=== PATIENT | female | born 1975 | race Caucasian/White ===

== ENCOUNTER 2019-04-07 21:56 | Inpatient (IN) | payer OTHER ==
[~2019-04-07] VITALS: Ht 157.5 cm; Wt 117.9 kg
--- NOTE | 2019-04-07 22:27 | NUR ---
PACIENTE ALERTA,ACTIVA Y ORIENTADA.REFIERE DESDE MEDIO LILY DOLOR ABDOMINAL, DIARREAS X 10 Y VOMITOPS X 10.
[2019-04-07] MEDS ORDERED: ZESTRIL20 MG (22:29)
--- NOTE | 2019-04-08 00:44 | NUR ---
BP-196/91. SE NOTIFICA A
--- NOTE | 2019-04-08 00:52 | NUR ---
MS ELDRIDGE ORIENTA PTE SOBRE TX MEDICO EL CUAL REFIERE ENTENDER.SE LE EXTRAEN MUESTRAS BAJO MEDIDAS ASEPTICAS,SE CANALIZA Y SE ADMINISTRA MEDICAMENTO SARAH ORDEN MEDICA.
--- NOTE | 2019-04-08 07:25 | NUR ---
PACIENTE ALERTA Y ORIENTADA EN GRUPO NATALYA ESFERAS, PRESENTA BUEN PATRON RESPIRATORIO Y JACQUE DE DOLOR. CANALIZACION PATENTE Y JACQUE DE S/S DE FLEBITIS E INFILTRACION, RECIBIENDO 0.9% NSS A 175 ML/HR. PENDIENTE EVALUACION DE MEDICINA INTERNA CON DR GARVIN POR ENTERITIS.
[2019-04-10] MEDS ORDERED: FLAGYL500MG PO (12:05)
[2019-04-10] MEDS ORDERED: CIPRO500 MG PO (12:05)
[2019-04-10] MEDS ORDERED: ZESTRIL20 MG PO ×2 (12:19→12:25)
[2019-04-10] MEDS ORDERED: LISINOPRIL20 MG PO (12:25)
== END 2019-04-10 13:23 | disposition home or self-care (01) | DRG 392 ==
LOC: ER 21:56 → MEDJ 04-08 08:33
PROVIDERS: ADMIT Student in an Organized Health Care Education/Training Program
DX: K52.89 Other specified noninfective gastroenteritis and colitis (principal); I10 Essential (primary) hypertension; E66.09 Other obesity due to excess calories; E86.0 Dehydration; E87.8 Other disorders of electrolyte and fluid balance, not elsewhere classified

== ENCOUNTER 2020-09-22 03:15 | Emergency (ER) | payer OTHER ==
[~2020-09-22] VITALS: Ht 160 cm; Wt 127.0 kg
[~2020-09-22 03:15] MED LIST: CIPRO500 MG PO; FLAGYL500MG PO; LISINOPRIL20 MG PO; ZESTRIL20 MG; ZESTRIL20 MG PO
[2020-09-22] MEDS ORDERED: AVALIDE 300-121 EACH (03:30)
[2020-09-22] MEDS ORDERED: ORASEP SPRAY30 ML MM (05:15)
[2020-09-22] MEDS ORDERED: CEPHALEXIN500 MG PO (05:15)
== END 2020-09-22 05:20 ==
LOC: ER 03:15
DX: J03.80 Acute tonsillitis due to other specified organisms (principal)

== ENCOUNTER 2021-02-01 09:03 | Emergency (ER) | payer OTHER ==
[~2021-02-01] VITALS: Ht 157.5 cm; Wt 140.2 kg
[~2021-02-01 09:03] MED LIST changes: +AVALIDE 300-121 EACH; +CEPHALEXIN500 MG PO; +ORASEP SPRAY30 ML MM
[2021-02-01] MEDS ORDERED: DICLOFENAC POTA50 MG PO (13:02)
[2021-02-01] MEDS ORDERED: AMOX-CLAV 875-1 EAC1 PO (13:02)
[2021-02-01] MEDS ORDERED: INTESTINEX680 M1 PO (13:02)
[2021-02-01] MEDS ORDERED: PEPCID AC20 MG PO (13:02)
== END 2021-02-01 13:15 ==
LOC: ER 09:03
DX: J03.90 Acute tonsillitis, unspecified (principal); Z03.818 Encounter for observation for suspected exposure to other biological agents ruled out

== ENCOUNTER 2022-01-28 09:59 | Emergency (ER) | payer OTHER ==
[~2022-01-28] VITALS: Ht 154.9 cm; Wt 117.9 kg
[~2022-01-28 09:59] MED LIST changes: +AMOX-CLAV 875-1 EAC1 PO; +DICLOFENAC POTA50 MG PO; +INTESTINEX680 M1 PO; +PEPCID AC20 MG PO
[2022-01-28] MEDS ORDERED: ONDANSETRON ODT4 MG PO (17:03)
[2022-01-28] MEDS ORDERED: LEVSIN/SL0.125 MG PO (17:03)
[2022-01-28] MEDS ORDERED: INTESTINEX680 M1 PO (17:03)
[2022-01-28] MEDS ORDERED: PEPCID AC20 MG PO (17:03)
== END 2022-01-28 18:24 ==
LOC: ER 09:59
DX: K52.9 Noninfective gastroenteritis and colitis, unspecified (principal); E86.0 Dehydration; R10.13 Epigastric pain; R11.2 Nausea with vomiting, unspecified; I10 Essential (primary) hypertension; Z88.6 Allergy status to analgesic agent; Z88.5 Allergy status to narcotic agent; Z20.822 Contact with and (suspected) exposure to COVID-19